=== PATIENT | female | born 1970 | race Two or more races ===

== ENCOUNTER 2020-11-08 08:15 | Outpatient (REF) | payer MEDICAID, SELFPAY ==
[2020-11-08 10:08] LABS: Hematocrit 38.9 % (37-47); Hemoglobin 12.7 g/dl (12.0-16.0); Mean Corpuscular HGB Conc 32.6 g/dl (31.0-35.0); Mean Corpuscular Hemoglobin 31.6 pg (27.0-33.0); Mean Corpuscular Volume 96.8 fL (80-98); Mean Platelet Volume 10.8 fL (9.4-12.3); Platelet Count 206 X10*3/uL (160-400); Red Blood Count 4.02 X10*6/uL (4.20-5.50); Red Cell Distribution Width 12.3 % (11.0-16.0); White Blood Count 3.1 X10*3/uL (4.8-10.8)
[2020-11-08 10:38] LABS: Alanine Aminotransferase 16 U/L (0-31); Albumin Level 4.3 g/dL (3.5-5.0); Alkaline Phosphatase 57 U/L (39-117); Anion Gap 12 (12-20); Aspartate Amino Transferase 31 U/L (5-31); Bilirubin Total 0.5 mg/dL (0.0-1.0); Blood Urea Nitrogen 12 mg/dL (9-16); Calcium 9.5 mg/dL (8.4-10.2); Carbon Dioxide 25 mmol/L (22-29); Chloride 107 mmol/L (96-108); Estimated Glomerular Filt Rate > 60; Glucose Random 83 mg/dL (60-115); Potassium 4.8 mmol/L (3.3-5.1); Sodium 139 mmol/L (135-145); Total Protein 7.4 g/dL (6.5-8.0)
== END 2020-11-08 08:16 | disposition home or self-care (01) ==
LOC: HO.LAB 08:15
PROVIDERS: PCP Internal Medicine Geriatric Medicine; Visit Provider Nurse Practitioner Family
DX: K21.9 Gastro-esophageal reflux disease without esophagitis (principal)
CPT/HCPCS: 36415; 80053; 85027; 99202

== ENCOUNTER 2020-12-16 11:25 | Day surgery (SDC) | payer MEDICAID, SELFPAY ==
[2020-12-12 10:39] VITALS: BMI 20.7
--- NOTE | 2020-12-15 11:45 | HO.ANESPROP2 ---
HPI - Anesthesia Eval Consult details Narrative: 50yo F for Colonoscopy PMFSH Past Medical History Medical History Hx of small bowel obstruction Surgical History Surgical History History of exploratory laparotomy Hx of hysterectomy Social History Social History Advance Directives Information Provided: No Meds Allergies Allergy/AdvReac Type Severity Reaction Status Date / Time No Known Allergies Allergy Verified 12/16/20 11:42 [No Known Allergies*] Exam Exam Date and Time: December 15, 2020 1145 Height,Weight and Vital Signs: Height 5 ft 9 in Weight 63.503 kg Pertinent Lab Results Pertinent Lab Results: Laboratory Tests 11/08/20 11/08/20 09:23 09:23 WBC 3.1 L Hgb 12.7 Hct 38.9 Plt Count 206 Sodium 139 Potassium 4.8 Chloride 107 Carbon Dioxide 25 BUN 12 Creatinine 0.77 Assessment and Plan Assessment Anesthesia Assessment: Chart Reviewed
[2020-12-16 11:54] VITALS: BP 122/75; PULSE 63; RESP 18; TEMP 37; O2SAT 98
[2020-12-16] MEDS: Lactated Ringers 1,000 ML 100 ML IVCONT (12:04)
--- NOTE | 2020-12-16 12:26 | MHC.SHP ---
Pre-Procedural Eval Section A Date of Service: 12/16/20 The patient is an INPATIENT: No The History & Physical has been completed within 30 days and I have reviewed it.: No Section B Chief Complaint: Screening Details of Present Illness: colon cancer screening, GERD Relevant Family History (Specify if Yes): No Relevant Social History: None Present Medications: see Short Stay Collaborative assessment Medical History: Significant History (GERD) History of Previous Operations: Relevant previous surgery/procedure and date(s) (hx of hysterectomy, exp lap for SBO) Allergies: Allergies Allergy/AdvReac Type Severity Reaction Status Date / Time No Known Allergies Allergy Verified 12/16/20 11:42 [No Known Allergies*] Review of Systems Sugical H&P ROS: Negative: Constitution, Cardiovascular and Respiratory and Yes, Specify: Gastrointestinal (GERD) Exam Surgical H&P Exam: Normal: Heart, Normal: Lungs, Normal: Extremities and Normal: Abdomen Plan Diagnosis/Plan: Change (Add EGD due to GERD) I have reviewed the history and physical and performed a pertinent physical examination on my patient. No changes have occurred unless specified.
--- NOTE | 2020-12-16 12:37 | P.BOP_ITS ---
Brief Operative Note Date of Service: 12/16/20 Pre-op diagnosis: Colon cancer screening, GERD Post-op diagnosis: other (Colon polyps, diverticulosis, hemorrhoids, GERD, gastritis) Procedure: FLEXIBLE TRANSORAL UPPER GASTROINTESTINAL ENDOSCOPY WITH BIOPSIES AND COLONOSCOPY TILL CECUM WITH SNARE POLYPECTOMY AND SUBMUCOSAL INJECTION UPPER ENDOSCOPY Consent: Indications for the procedure and potential complications of bleeding, perforation, reaction to medications and missed diagnosis were discussed with the patient and informed consent was obtained. Instrument: Olympus GIF H 190 mid size upper endoscope Monitoring: Vital signs and clinical assessment, continuous EKG monitoring, Pulse oximetry, Carbon Dioxide monitoring and blood pressure monitoring were done throughout the procedure. Procedure: The patient was placed in the left lateral decubitis position and pre-procedure medications were administered and a bite block was placed. The endoscope was inserted into the mouth and advanced under direct vision to the third part of duodenum. A careful inspection was made as the upper endoscope was withdrawn including a retroflexed examination of the proximal stomach; Findings and interventions are described below. Findings: Larynx: Normal Esophagus: GE junction at 38 cms.. No esophagitis or Tabor's. Stomach: Moderate gastric erythema. Biopsies were obtained. Grade 2 flap valve on retroflexed examination of the cardia. Duodenum: Normal bulb and descending duodenum Intervention: Biopsies as noted above COLONOSCOPY PROCEDURE NOTE Consent: Indications for the procedure and potential complications of bleeding, perforation, reaction to medications and missed diagnosis were discussed with the patient and informed consent was obtained. Instrument: Olympus PCF H 190 L variable stiffness pediatric colonoscope Monitoring: Vital signs and clinical assessment, intermittent blood pressure monitoring, continuous EKG monitoring, Pulse oximetry and Carbon Dioxide monitoring were done throughout the procedure. Colon withdrawl time was 20 minutes. Procedure: The patient was placed in the left lateral decubitis position and pre-procedure medications were administered. After a digital rectal examination of the ano-rectum, the video colonoscope was inserted into the rectum and advanced through the colon to the cecum. The colonoscope was slowly withdrawn in a retrograde panoramic fashion and the colon mucosa was carefully examined including a retroflexed view of the rectum. Findings and interventions are described below. Procedure Difficulty: : Without difficulty Findings: Terminal Ileum: Not evaluated Cecum: Normal Ascending Colon: A 15 mm flat polyp in mid AC raised with 3 cc of Orise solution and removed with a hot snare. Transverse Colon: Normal Descending Colon: Normal Sigmoid Colon: Moderate diverticulosis Rectum: Normal Ano-rectum: Moderate internal hemorrhoids Colon preparation: Good after some irrigation Impression and Post Procedure Diagnosis: Endoscopy Findings: ESOPHAGUS: No esophagitis or Tabor's STOMACH: Gastritis Colonoscopy Findings: One medium sized polyp removed Moderate diverticulosis seen in the sigmoid colon Plan: Await pathology results. Pt can be treated with Famotidine 1-2 times daily for GERD since no esophagitis noted on EGD. Patient has an appointment on 12/30/20 in the [facility] with Rashida Duncan FNP-BC. Repeat Colonoscopy interval based on path results - in 3 years if polyps are adenomatous and 10 years if polyps are hyperplastic. Above findings were reviewed with the patient and GERD, colon polyps and diverticulosis handouts were given in the discharge area Surgeon: Shu Reed MD Anesthesia: MAC (Emilie Ibarra CRNA) Was an [employer] used for this Procedure?: Yes Grated [employer] Maker: [employer] Hernandes Estimated blood loss (mL): 0 Pathology: other (A- GASTRIC BXS R/O H. PYLORI B- ASCENDING COLON POLYP O-RISE USED) Condition: stable Disposition: PACU
[2020-12-16 13:25] VITALS: BP 116/72; PULSE 62; RESP 14; TEMP 35.8; O2SAT 100
[2020-12-16 13:40] VITALS: BP 129/55; PULSE 62; RESP 16; O2SAT 100
[2020-12-16 13:55] VITALS: BP 123/60; PULSE 68; RESP 16; O2SAT 100
[2020-12-16 13:57] VITALS: TEMP 36.1
--- NOTE | 2020-12-16 19:17 | P.OP_ITS ---
Operative Note Operative Note Date of Service: 12/16/20 Narrative: Pre-op diagnosis:?Colon cancer screening, GERD Post-op diagnosis:?other (Colon polyps, diverticulosis, hemorrhoids, GERD, gastritis) Procedure:? FLEXIBLE TRANSORAL UPPER GASTROINTESTINAL ENDOSCOPY WITH BIOPSIES AND COLONOSCOPY TILL CECUM WITH SNARE POLYPECTOMY AND SUBMUCOSAL INJECTION UPPER ENDOSCOPY Consent:?Indications for the procedure and potential complications of bleeding, perforation, reaction to medications and missed diagnosis were discussed with the patient and informed consent was obtained. Instrument:?Olympus GIF H 190 mid size upper endoscope Monitoring: Vital signs and clinical assessment, continuous EKG monitoring, Pulse oximetry, Carbon Dioxide monitoring and blood pressure monitoring were done throughout the procedure. Procedure:?The patient was placed in the left lateral decubitis position and pre-procedure medications were administered and a bite block was placed. The endoscope was inserted into the mouth and advanced under direct vision to the third part of duodenum. A careful inspection was made as the upper endoscope was withdrawn including a retroflexed examination of the proximal stomach; Findings and interventions are described below. Findings: Larynx:? Normal Esophagus:?GE junction at 38 cms.. No esophagitis or Tabor's. Stomach:?Moderate gastric erythema. Biopsies were obtained. Grade 2 flap valve on retroflexed examination of the cardia. Duodenum:?Normal bulb and descending duodenum Intervention:?Biopsies as noted above COLONOSCOPY PROCEDURE NOTE Consent:?Indications for the procedure and potential complications of bleeding, perforation, reaction to medications and missed diagnosis were discussed with the patient and informed consent was obtained. Instrument:?Olympus PCF H 190 L variable stiffness pediatric colonoscope Monitoring:?Vital signs and clinical assessment, intermittent blood pressure monitoring, continuous EKG monitoring, Pulse oximetry and Carbon Dioxide monitoring were done throughout the procedure. Colon withdrawl time was 20 minutes. Procedure:?The patient was placed in the left lateral decubitis position and pre-procedure medications were administered. After a digital rectal examination of the ano-rectum, the video colonoscope was inserted into the rectum and advanced through the colon to the cecum. The colonoscope was slowly withdrawn in a retrograde panoramic fashion and the colon mucosa was carefully examined including a retroflexed view of the rectum. Findings and interventions are described below. Procedure Difficulty:?: Without difficulty Findings: Terminal Ileum: Not evaluated Cecum:? Normal Ascending Colon:??A 15 mm flat polyp in mid AC raised with 3 cc of Orise solution and removed with a hot snare. Transverse Colon:??Normal Descending Colon:? Normal Sigmoid Colon:??Moderate diverticulosis Rectum:??Normal Ano-rectum:??Moderate internal hemorrhoids Colon preparation:? Good after some irrigation Impression and Post Procedure Diagnosis: Endoscopy Findings: ESOPHAGUS: No esophagitis or Tabor's STOMACH: Gastritis Colonoscopy Findings: One medium sized polyp removed Moderate diverticulosis seen in the sigmoid colon Plan: Await pathology results. Pt can be treated with Famotidine 1-2 times daily for GERD since no esophagitis noted on EGD. Patient has an appointment on 12/30/20 in the GI Clinic with Rashida Duncan FNP- [facility]. Repeat Colonoscopy interval based on path results - in 3 years if polyps are adenomatous and 10 years if polyps are hyperplastic. Above findings were reviewed with the patient and GERD, colon polyps and divert iculosis handouts were given in the discharge area Surgeon:?Shu Reed MD Anesthesia:?MAC (Emilie Ibarra CRNA) Was an [employer] used for this Procedure?:?Yes [employer]:?Zen[employer] Hernandes Estimated blood loss (mL):?0 Pathology:?other (A- GASTRIC BXS? R/O H. PYLORI? B- ASCENDING COLON POLYP? O-RISE USED) Condition:?stable Disposition:?PACU
== END 2020-12-16 14:31 | disposition home or self-care (01) ==
PROVIDERS: PCP Internal Medicine Geriatric Medicine; Visit Provider Internal Medicine Gastroenterology
PROC: (CPT 45385; principal; 2020-12-16 12:30)
DX: Z12.11 Encounter for screening for malignant neoplasm of colon (principal); D12.2 Benign neoplasm of ascending colon; K57.30 Diverticulosis of large intestine without perforation or abscess without bleeding; K64.8 Other hemorrhoids; K21.9 Gastro-esophageal reflux disease without esophagitis; K29.50 Unspecified chronic gastritis without bleeding; B96.81 Helicobacter pylori [H. pylori] as the cause of diseases classified elsewhere
CPT/HCPCS: 45385; 45381; 43239; 88305; 88342; J3010

== ENCOUNTER → 2020-12-30 14:21 | Outpatient (BNVA) | payer MEDICAID, SELFPAY | PROVIDERS: PCP Internal Medicine Geriatric Medicine; Visit Provider Nurse Practitioner Family ==